=== PATIENT | male | born 1960 | race Caucasian/White ===

== ENCOUNTER 2019-03-20 14:37 | Emergency (ER) | payer SELFPAY ==
--- NOTE | 2019-03-20 15:09 | RAD ---
TWO VIEW CHEST: HISTORY: Chest pain. FINDINGS: Lung prajapati are clear. Heart and mediastinum unremarkable. Osseous structures unremarkable. IMPRESSION: No acute finding. POS: OFF
[2019-03-20 15:14] LABS: #Basophils 0.2 thou/uL (0.0-0.2); #Eosinphils 0.3 thou/uL (0.0-0.7); #Lymphocytes 4.7 thou/uL (1.20-3.40); #Monocytes 0.9 thou/uL (0.11-0.59); #Neutrophils 4.3 thou/uL (1.40-6.50); %Basophils 1.6 % (0.0-1.0); %Eosinophils 2.8 % (0.0-10.0); %Lymphocytes 45.1 % (21.0-51.0); %Neutrophils 41.4 % (42.0-75.0); Mean Corpuscular HGB CONC 33.5 g/dL (32.0-36.0); Mean Corpuscular Hemoglobin 32.8 pg (27.0-31.0); Mean Corpuscular Volume 97.8 fL (78.0-98.0); Mean Platelet Volume 7.1 fL (7.4-10.4); Platelet Count 413 thou/uL (130-400); RBC Distribution Width 11.5 % (11.5-14.5); Red Blood Cell (RBC) Count 3.96 mill/uL (4.70-6.10); White Blood Cell (WBC) Count 10.4 thou/uL (4.8-10.8)
[2019-03-20] MEDS ORDERED: Ketorolac Tromethamine 60 MG/2 ML VIAL ONE (15:35)
[2019-03-20 15:44] LABS: ALT (SGPT) 16 U/L (8-55); AST (SGOT) 17 U/L (5-34); Albumin 4.2 g/dL (3.5-5.0); Alkaline Phosphatase 78 U/L (40-150); Anion Gap 9 mmol/L (10-20); BUN (Urea Nitrogen) 21 mg/dL (8.4-25.7); Bilirubin, Total 0.2 mg/dL (0.2-1.2); CK (CPK) 125 U/L (30-200); Calc. Creatinine Clearance 0 mL/min (70-130); Calcium 9.6 mg/dL (7.8-10.44); Carbon Dioxide 28 mmol/L (22-29); Chloride 105 mmol/L (98-107); Estimated GFR-MDRD 76; Globulin 2.9 g/dL (2.4-3.5); Glucose 101 mg/dL (70-105); Potassium 4.2 mmol/L (3.5-5.1); Protein, Total 7.1 g/dL (6.0-8.3); Sodium 138 mmol/L (136-145)
== END 2019-03-20 16:58 | disposition home or self-care (01) ==
LOC: ERS 14:37
DX: M62.830 Muscle spasm of back (principal); F32.9 Major depressive disorder, single episode, unspecified; Z79.82 Long term (current) use of aspirin
CPT/HCPCS: 36415; 71046; 80053; 82550; 84484; 85025; 93005; 96372; J1885

== ENCOUNTER 2021-07-04 08:18 | Inpatient (IN) | payer OTHER, SELFPAY ==
[2021-07-04] MEDS ORDERED: cefTRIAXone\\ROCEPHIN 1 GM VIAL ONE (08:47)
[2021-07-04] MEDS ORDERED: Promethazine HCl 25 MG/ML VIAL ONE (08:52)
[2021-07-04] MEDS ORDERED: Pantoprazole 80 MG, Admixture Fee 1 EACH in Sodium Chloride 0.9% 100 ML IVPB SCH (09:00)
[2021-07-04 09:25] LABS: #Basophils 0.1 thou/uL (0.0-0.2); #Eosinphils 0.1 thou/uL (0.0-0.7); #Lymphocytes 3.1 thou/uL (1.20-3.40); #Monocytes 0.9 thou/uL (0.11-0.59); #Neutrophils 15.6 thou/uL (1.40-6.50); %Basophils 0.3 % (0.0-1.0); %Eosinophils 0.3 % (0.0-10.0); %Lymphocytes 15.7 % (21.0-51.0); %Monocytes 4.4 % (0.0-10.0); %Neutrophils 79.2 % (42.0-75.0); Hemoglobin 10.2 g/dL (14.0-18.0); Mean Corpuscular HGB CONC 34.4 g/dL (32.0-36.0); Mean Corpuscular Hemoglobin 32.9 pg (27.0-31.0); Mean Corpuscular Volume 95.4 fL (78.0-98.0); Mean Platelet Volume 7.4 fL (7.4-10.4); Platelet Count 486 thou/uL (130-400); RBC Distribution Width 11.3 % (11.5-14.5); Red Blood Cell (RBC) Count 3.12 mill/uL (4.70-6.10); White Blood Cell (WBC) Count 19.6 thou/uL (4.8-10.8)
[2021-07-04 09:26] LABS: ALT (SGPT) 17 U/L (8-55); AST (SGOT) 13 U/L (5-34); Albumin 3.5 g/dL (3.5-5.0); Alkaline Phosphatase 47 U/L (40-110); Anion Gap 18 mmol/L (10-20); BUN (Urea Nitrogen) 58 mg/dL (8.4-25.7); Bilirubin, Total 0.2 mg/dL (0.2-1.2); Calc. Creatinine Clearance 0 mL/min (70-130); Calcium 8.9 mg/dL (7.8-10.44); Carbon Dioxide 15 mmol/L (22-29); Chloride 110 mmol/L (98-107); Globulin 3.1 g/dL (2.4-3.5); Glucose 158 mg/dL (70-105); Potassium 4.2 mmol/L (3.5-5.1); Protein, Total 6.6 g/dL (6.0-8.3); Sodium 139 mmol/L (136-145)
[2021-07-04 09:38] LABS: INR-International Normal Ratio 1.1; Prothrombin Time 13.9 sec (12.0-14.7)
[2021-07-04 09:39] LABS: PTT 24.7 sec (22.9-36.1)
[2021-07-04 12:18] LABS: Troponin I Less than 0.010 ng/mL (< 0.028)
[2021-07-04] MEDS ORDERED: Octreotide Acetate 1,250 MCG in Sodium Chloride 0.9% 250 ML 250 ML IVPB SCH (13:37)
[2021-07-04] MEDS ORDERED: Pantoprazole 80 MG in Sodium Chloride 0.9% 100 ML IVPB SCH (13:37)
[2021-07-04] MEDS ORDERED: Ondansetron PF 4 MG/2 ML Vial IVP PRN (13:37)
[2021-07-04] MEDS ORDERED: Pantoprazole 40 MG VIAL ONE (14:53)
[2021-07-04 15:21] LABS: Hemoglobin 8.6 g/dL (14.0-18.0)
[2021-07-04 15:28] VITALS: BMI 24.0
[2021-07-04] MEDS: Thiamine HCl 200 MG/2 ML VIAL SLOW IVP SCH (15:29)
[2021-07-04 15:33] LABS: SARS-CoV-2 NAA Rapid Test Not Detected (NotDetected)
[2021-07-04 15:48] LABS: Troponin I Less than 0.010 ng/mL (< 0.028)
[2021-07-04] MEDS ORDERED: PROPOFOL 200 MG/20 ML VIAL ONE (18:30)
[2021-07-04] MEDS ORDERED: EPINEPHrine 1 MG/ML AMP ONE (18:32)
[2021-07-04] MEDS: Sodium Chloride 0.9% 1,000 ML IV SCH (20:46)
[2021-07-04] MEDS: Pantoprazole 40 MG VIAL IVP SCH (20:47)
[2021-07-04 20:57] LABS: Hemoglobin 8.4 g/dL (14.0-18.0)
[2021-07-05] MEDS: Sodium Chloride 0.9% 1,000 ML IV SCH (03:30)
[2021-07-05 04:00] LABS: #Basophils 0.2 thou/uL (0.0-0.2); #Eosinphils 0.1 thou/uL (0.0-0.7); #Lymphocytes 5.5 thou/uL (1.20-3.40); #Monocytes 1.1 thou/uL (0.11-0.59); #Neutrophils 6.8 thou/uL (1.40-6.50); %Basophils 1.2 % (0.0-1.0); %Eosinophils 0.8 % (0.0-10.0); %Lymphocytes 40.3 % (21.0-51.0); %Monocytes 7.7 % (0.0-10.0); %Neutrophils 50.1 % (42.0-75.0); Hemoglobin 7.8 g/dL (14.0-18.0); Mean Corpuscular HGB CONC 34.6 g/dL (32.0-36.0); Mean Corpuscular Hemoglobin 32.8 pg (27.0-31.0); Mean Corpuscular Volume 94.6 fL (78.0-98.0); Mean Platelet Volume 7.6 fL (7.4-10.4); Platelet Count 411 thou/uL (130-400); RBC Distribution Width 11.3 % (11.5-14.5); Red Blood Cell (RBC) Count 2.39 mill/uL (4.70-6.10); White Blood Cell (WBC) Count 13.7 thou/uL (4.8-10.8)
[2021-07-05 04:25] LABS: Anion Gap 11 mmol/L (10-20); BUN (Urea Nitrogen) 31 mg/dL (8.4-25.7); Calc. Creatinine Clearance 86 mL/min (70-130); Calcium 8.3 mg/dL (7.8-10.44); Carbon Dioxide 21 mmol/L (22-29); Chloride 112 mmol/L (98-107); Glucose 110 mg/dL (70-105); Sodium 140 mmol/L (136-145)
[2021-07-05 08:45] LABS: Hemoglobin 7.6 g/dL (14.0-18.0); Platelet Count 409 thou/uL (130-400)
[2021-07-05] MEDS: Pantoprazole 40 MG VIAL IVP SCH ×2 (10:08→22:54)
[2021-07-05] MEDS: Thiamine HCl 200 MG/2 ML VIAL SLOW IVP SCH (16:04)
[2021-07-05 18:22] LABS: Hemoglobin 6.8 g/dL (14.0-18.0); Platelet Count 376 thou/uL (130-400)
[2021-07-06 03:53] LABS: #Basophils 0.2 thou/uL (0.0-0.2); #Eosinphils 0.4 thou/uL (0.0-0.7); #Monocytes 0.9 thou/uL (0.11-0.59); #Neutrophils 5.7 thou/uL (1.40-6.50); %Basophils 1.3 % (0.0-1.0); %Eosinophils 3.6 % (0.0-10.0); %Lymphocytes 41.1 % (21.0-51.0); %Monocytes 7.7 % (0.0-10.0); %Neutrophils 46.4 % (42.0-75.0); Hemoglobin 7.5 g/dL (14.0-18.0); Mean Corpuscular Hemoglobin 32.9 pg (27.0-31.0); Mean Corpuscular Volume 94.1 fL (78.0-98.0); Mean Platelet Volume 7.4 fL (7.4-10.4); Platelet Count 359 thou/uL (130-400); RBC Distribution Width 11.5 % (11.5-14.5); Red Blood Cell (RBC) Count 2.28 mill/uL (4.70-6.10); White Blood Cell (WBC) Count 12.2 thou/uL (4.8-10.8)
[2021-07-06 04:16] LABS: Anion Gap 10 mmol/L (10-20); BUN (Urea Nitrogen) 15 mg/dL (8.4-25.7); Calc. Creatinine Clearance 91 mL/min (70-130); Calcium 8.2 mg/dL (7.8-10.44); Carbon Dioxide 24 mmol/L (22-29); Chloride 107 mmol/L (98-107); Glucose 105 mg/dL (70-105); Potassium 3.9 mmol/L (3.5-5.1); Sodium 137 mmol/L (136-145)
[2021-07-06] MEDS: Pantoprazole 40 MG VIAL IVP SCH ×2 (08:49→20:36)
[2021-07-06 12:39] LABS: Hemoglobin 7.1 g/dL (14.0-18.0); Platelet Count 360 thou/uL (130-400)
[2021-07-06] MEDS: Sodium Chloride 0.9% 1,000 ML IV SCH (13:08)
[2021-07-06] MEDS: Thiamine HCl 200 MG/2 ML VIAL SLOW IVP SCH (15:06)
[2021-07-07 04:39] LABS: Anion Gap 9 mmol/L (10-20); BUN (Urea Nitrogen) 13 mg/dL (8.4-25.7); Calc. Creatinine Clearance 94 mL/min (70-130); Calcium 8.7 mg/dL (7.8-10.44); Carbon Dioxide 26 mmol/L (22-29); Chloride 104 mmol/L (98-107); Glucose 107 mg/dL (70-105); Potassium 4.2 mmol/L (3.5-5.1); Sodium 135 mmol/L (136-145)
[2021-07-07 04:45] LABS: Eosinophils 5 % (0-10); Hemoglobin 8.4 g/dL (14.0-18.0); Lymphocytes 52 % (21-51); MDiff Complete? YES; Mean Corpuscular HGB CONC 35.2 g/dL (32.0-36.0); Mean Corpuscular Hemoglobin 32.3 pg (27.0-31.0); Mean Corpuscular Volume 91.8 fL (78.0-98.0); Mean Platelet Volume 7.4 fL (7.4-10.4); Monocytes 4 % (0-10); Neutrophil 39 % (42-75); Platelet Count 392 thou/uL (130-400); Platelet Morphology Comment Appears Adequate; RBC Distribution Width 13.6 % (11.5-14.5); Red Blood Cell (RBC) Count 2.61 mill/uL (4.70-6.10); White Blood Cell (WBC) Count 13.2 thou/uL (4.8-10.8)
[2021-07-07] MEDS: Pantoprazole 40 MG VIAL IVP SCH ×2 (09:03→21:21)
[2021-07-07] MEDS ORDERED: Acetaminophen 325 MG TAB PO PRN (12:48)
[2021-07-07] MEDS: Thiamine HCl 200 MG/2 ML VIAL SLOW IVP SCH (13:24)
[2021-07-08 04:58] LABS: #Basophils 0.1 thou/uL (0.0-0.2); #Eosinphils 0.4 thou/uL (0.0-0.7); #Lymphocytes 3.8 thou/uL (1.20-3.40); #Monocytes 0.9 thou/uL (0.11-0.59); %Basophils 1.2 % (0.0-1.0); %Eosinophils 3.5 % (0.0-10.0); %Lymphocytes 33.9 % (21.0-51.0); %Monocytes 8.4 % (0.0-10.0); Mean Corpuscular HGB CONC 34.5 g/dL (32.0-36.0); Mean Corpuscular Volume 92.7 fL (78.0-98.0); Mean Platelet Volume 7.4 fL (7.4-10.4); Platelet Count 452 thou/uL (130-400); RBC Distribution Width 13.9 % (11.5-14.5); White Blood Cell (WBC) Count 11.2 thou/uL (4.8-10.8)
[2021-07-08] MEDS: Pantoprazole 40 MG VIAL IVP SCH (08:49)
[2021-07-08 11:41] VITALS: BP 137/68; TEMP 98.7
== END 2021-07-08 13:25 | disposition home or self-care (01) | DRG 378 ==
LOC: ERS 08:18 → 2NO 10:55
PROVIDERS: ADMIT Internal Medicine; ATTEND Internal Medicine
PROC: 0W3P8ZZ Control Bleeding in Gastrointestinal Tract, Via Natural or Artificial Opening Endoscopic (ICD-10-PCS; principal; 2021-07-04)
PROC: 30233N1 Transfusion of Nonautologous Red Blood Cells into Peripheral Vein, Percutaneous Approach (ICD-10-PCS; 2021-07-06)
DX: K31.82 Dieulafoy lesion (hemorrhagic) of stomach and duodenum (principal); D62 Acute posthemorrhagic anemia; Z20.822 Contact with and (suspected) exposure to COVID-19; F10.11 Alcohol abuse, in remission; F17.200 Nicotine dependence, unspecified, uncomplicated; F32.9 Major depressive disorder, single episode, unspecified; Q60.0 Renal agenesis, unilateral; Z90.5 Acquired absence of kidney; Z82.49 Family history of ischemic heart disease and other diseases of the circulatory system; Z90.81 Acquired absence of spleen
CPT/HCPCS: 36415; 36430; 71045; 74019; 80048; 80053; 82274; 84484; 85025; 85610; 85730; 86850; 86900; 86901; 93005; 96365; 96366; 96368; C9113; J0171; J0696; J2354; J2550; J2704; J3411; J3490; J7050; P9016; U0002

== ENCOUNTER 2022-11-20 10:00 | Outpatient (CLI) | payer OTHER | END 2022-11-20 10:01 | disposition home or self-care (01) | LOC: TBSIIMAG 10:00 | PROVIDERS: ATTEND Neurological Surgery | DX: M54.50 Low back pain, unspecified (principal); M51.15 Intervertebral disc disorders with radiculopathy, thoracolumbar region; M47.25 Other spondylosis with radiculopathy, thoracolumbar region; M51.37 Other intervertebral disc degeneration, lumbosacral region; M47.26 Other spondylosis with radiculopathy, lumbar region; M47.27 Other spondylosis with radiculopathy, lumbosacral region; M48.07 Spinal stenosis, lumbosacral region | CPT/HCPCS: 72148 ==

== ENCOUNTER 2023-10-20 15:57 | Outpatient (CLI) | payer OTHER | END 2023-10-20 15:58 | disposition home or self-care (01) | LOC: BICRAD 15:57 | PROVIDERS: ATTEND Preventive Medicine Occupational Medicine | DX: M25.552 Pain in left hip (principal) ==

== ENCOUNTER 2024-05-13 13:29 | Outpatient (CLI) | payer OTHER | END 2024-05-13 13:30 | disposition home or self-care (01) | LOC: BICMRI 13:29 | PROVIDERS: ATTEND Family Medicine | DX: R41.3 Other amnesia (principal); R41.0 Disorientation, unspecified; M50.90 Cervical disc disorder, unspecified, unspecified cervical region; R41.89 Other symptoms and signs involving cognitive functions and awareness; J34.1 Cyst and mucocele of nose and nasal sinus; J34.89 Other specified disorders of nose and nasal sinuses | CPT/HCPCS: 70551 ==